=== PATIENT | male | born 1985 ===

== ENCOUNTER 2021-03-18 16:53 | Inpatient (IN) ==
[2021-03-19] MEDS ORDERED: ONDANSETRON 4 MG/2 ML VIAL IV PRN ×3 (03:12→18:01)
[2021-03-19] MEDS ORDERED: GLUCAGON 1 MG VIAL IM PRN (03:12)
[2021-03-19] MEDS ORDERED: HYDROmorphone 2 MG/1 ML VIAL IV PRN ×3 (03:12→13:36)
[2021-03-19] MEDS ORDERED: ACETAMINOPHEN 325 MG TABLET PO PRN (03:12)
[2021-03-19] MEDS ORDERED: DEXTROSE 50% 25 GM/50 ML SYRINGE IV PRN (03:16)
[2021-03-19] MEDS: SODIUM CHLORIDE 0.9% 1,000 ML IV SCH ×4 (03:29→18:08)
[2021-03-19 05:52] LABS: Basophils % 0.1 % (0.0-0.8); Eosinophils # 0.2 10*3/uL (0.0-0.87); Eosinophils % 2.2 % (0.00-10.9); Hematocrit 39.2 VOL% (42.0-52.0); Hemoglobin 13.6 GM/DL (14.0-18.0); Immature Granulocytes % 0.7 %; Immature Granulocytes Absolute 0.05 #; Lymphocytes # 1.8 10*3/uL (1.4-4.0); Lymphocytes % 23.8 % (21.2-54.2); Mean Corpuscular HGB Conc 34.7 GM/DL (32-36); Mean Corpuscular Volume 89.5 FL (87-102); Mean Platelet Volume 9.7 FL (9.6-12.0); Monocytes % 6.1 % (1.7-12.7); Neutrophils % 67.1 % (38.7-73.9); Platelet Count 209 T/CUMM (130-400); Red Blood Count 4.38 MC/CUMM (3.8-5.5); Red Cell Distribution Width 12.1 % (9.3-17.3); White Blood Count 7.6 T/CUMM (4-12)
[2021-03-19 06:09] LABS: Risk Ratio 4.07; VLDL Cholesterol 17.4 MG/DL
[2021-03-19 06:52] LABS: Albumin 2.8 G/DL (3.4-5.0); Calcium 8.4 MG/DL (8.5-10.1); Osmolality,Calculated 277.7 MOS/KG (273-304); Potassium 3.3 MMOL/L (3.5-5.1); Total Protein 6.8 G/DL (6.4-8.2)
[2021-03-19] MEDS: INSULIN REGULAR 100 UNIT/ML SUBCUT SCH ×4 (06:53→21:10)
[2021-03-19] MEDS: PANTOPRAZOLE 40 MG VIAL IV SCH (08:34)
[2021-03-19] MEDS ORDERED: fentaNYL 100 MCG/2 ML VIAL ONE ×2 (14:04→16:37)
[2021-03-19] MEDS ORDERED: ROCURONIUM 50 MG/5 ML VIAL IV ONE (14:04)
[2021-03-19] MEDS ORDERED: propofoL 200 MG/20 ML VIAL IV ONE (14:04)
[2021-03-19] MEDS ORDERED: LIDOCAINE 2% 5 ML VIAL ONE (14:04)
[2021-03-19] MEDS ORDERED: MIDAZOLAM 2 MG/2 ML VIAL ONE (14:06)
[2021-03-19] MEDS ORDERED: TISSUE ADHESIVE 1 EACH APPLICATOR TOP ONE (14:15)
[2021-03-19] MEDS ORDERED: ENOXAPARIN 40 MG/0.4 ML SYRINGE SUBCUT SCH (15:00)
[2021-03-19] MEDS ORDERED: SEVOFLURANE 1 UNIT/15 MINUTE INH ONE ×4 (15:58→17:28)
[2021-03-19] MEDS ORDERED: KETOROLAC 30 MG/1 ML VIAL ONE (16:06)
[2021-03-19] MEDS ORDERED: ONDANSETRON 4 MG/2 ML VIAL ONE (16:06)
[2021-03-19] MEDS ORDERED: DEXAMETHASONE 4 MG/1 ML VIAL ONE (16:06)
[2021-03-19] MEDS ORDERED: GLYCOPYRROLATE 0.4 MG/2 ML VIAL ONE (17:16)
[2021-03-19] MEDS ORDERED: NEOSTIGMINE 10 MG/10 ML VIAL ONE (17:16)
[2021-03-19] MEDS ORDERED: NALOXONE 0.4 MG/ML VIAL IV PRN (17:42)
[2021-03-19] MEDS ORDERED: HYDROmorphone PCA 30 MG/30 ML SYRINGE IV SCH (18:00)
[2021-03-19] MEDS: HYDROmorphone 2 MG/1 ML VIAL IV PRN ×5 (18:05→22:15)
[2021-03-19] MEDS: MEPERIDINE 25 MG/1 ML VIAL IV PRN ×2 (18:35→18:45)
[2021-03-19] MEDS: METHOCARBAMOL INJ 500 MG in SODIUM CHLORIDE 0.9% 100 ML IV SCH (21:02)
[2021-03-20] MEDS: INSULIN REGULAR 100 UNIT/ML SUBCUT SCH ×4 (00:13→18:09)
[2021-03-20] MEDS: HYDROmorphone 2 MG/1 ML VIAL IV PRN ×4 (02:48→13:10)
[2021-03-20] MEDS: METHOCARBAMOL INJ 500 MG in SODIUM CHLORIDE 0.9% 100 ML IV SCH ×3 (03:44→21:21)
[2021-03-20 05:18] LABS: Basophils % 0.1 % (0.0-0.8); Hematocrit 41.2 VOL% (42.0-52.0); Hemoglobin 14.1 GM/DL (14.0-18.0); Immature Granulocytes % 0.3 %; Immature Granulocytes Absolute 0.03 #; Lymphocytes # 0.5 10*3/uL (1.4-4.0); Lymphocytes % 5.2 % (21.2-54.2); Mean Corpuscular HGB Conc 34.2 GM/DL (32-36); Mean Corpuscular Volume 91.6 FL (87-102); Mean Platelet Volume 9.7 FL (9.6-12.0); Monocytes % 5.1 % (1.7-12.7); Neutrophils % 89.3 % (38.7-73.9); Platelet Count 247 T/CUMM (130-400); White Blood Count 10.1 T/CUMM (4-12)
[2021-03-20 05:43] LABS: Calcium 8.1 MG/DL (8.5-10.1); Osmolality,Calculated 281.7 MOS/KG (273-304); Potassium 4.2 MMOL/L (3.5-5.1); Total Protein 7.4 G/DL (6.4-8.2)
[2021-03-20] MEDS: SODIUM CHLORIDE 0.9% 1,000 ML IV SCH ×2 (06:14→06:46)
[2021-03-20] MEDS: PANTOPRAZOLE 40 MG VIAL IV SCH (09:59)
[2021-03-21] MEDS: INSULIN REGULAR 100 UNIT/ML SUBCUT SCH ×3 (00:07→12:16)
[2021-03-21] MEDS: METHOCARBAMOL INJ 500 MG in SODIUM CHLORIDE 0.9% 100 ML IV SCH ×2 (04:37→12:33)
[2021-03-21] MEDS: SODIUM CHLORIDE 0.9% 1,000 ML IV SCH ×2 (07:50→10:44)
[2021-03-21] MEDS: PANTOPRAZOLE 40 MG VIAL IV SCH (08:49)
[2021-03-21] MEDS ORDERED: LOSARTAN 25 MG TABLET PO SCH (12:00)
[2021-03-21 16:17] VITALS: BP 149/88
== END 2021-03-21 17:12 | disposition home or self-care (01) | DRG 416 ==
LOC: N.ED 16:53 → N.EDINP 16:53 → N.TELES 03-19 02:23
PROVIDERS: ADMIT Student in an Organized Health Care Education/Training Program; ATTEND Student in an Organized Health Care Education/Training Program
PROC: LAPCHOL (2021-03-19 15:56)